=== PATIENT | female | born 1990 | race Caucasian/White ===

== ENCOUNTER 2021-12-11 07:24 | Emergency (ER) | payer OTHER ==
[~2021-12-11] VITALS: Ht 157.5 cm; Wt 72.1 kg
[~2021-12-11 07:24] MED LIST: PREDNISONE PO; [UNRECOGNIZED DRUG - CODE] IH
[2021-12-11 07:30] VITALS: BP 144/92
--- NOTE | 2021-12-11 07:30 | NUR ---
Aggie schaefer in [facility] - 12/11/21 at 0955 by JAIRO DANIEL GARCIA, TO CHAIR Fleming
--- NOTE | 2021-12-11 07:30 | NUR ---
ANA CRISTINA GARCIA, VIA TATI TO CHAIR Fleming
[2021-12-11] MEDS ORDERED: KETOROLAC 60 MG/2 ML VIAL IM ONE (08:10)
[2021-12-11 08:26] VITALS: BP 138/84
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
--- NOTE | 2021-12-11 09:10 | NUR ---
Patient discharged with v/s stable. Written and verbal after care instructions given and explained. Patient verbalized understanding. Ambulatory with steady gait. All questions addressed prior to discharge. Advised to follow up with PMD.
== END 2021-12-11 09:10 | disposition home or self-care (01) ==
LOC: MED 07:24
DX: S16.1XXA Strain of muscle, fascia and tendon at neck level, initial encounter (principal); S23.9XXA Sprain of unspecified parts of thorax, initial encounter; S20.219A Contusion of unspecified front wall of thorax, initial encounter; T22.00XA Burn of unspecified degree of shoulder and upper limb, except wrist and hand, unspecified site, initial encounter; J45.909 Unspecified asthma, uncomplicated; Z79.899 Other long term (current) drug therapy; V89.2XXA Person injured in unspecified motor-vehicle accident, traffic, initial encounter; Y93.89 Activity, other specified; Y92.89 Other specified places as the place of occurrence of the external cause; Y99.8 Other external cause status
CPT/HCPCS: 71045; 72040; 72072; 96372; 99284; J1885